=== PATIENT | female | born 1995 | race Caucasian/White ===

== ENCOUNTER 2017-03-05 16:47 | Emergency (ER) | payer BC ==
[~2017-03-05] VITALS: Ht 175.3 cm; Wt 74.7 kg
[2017-03-05 19:12] LABS: RAPID INFLUENZA A Negative (Negative); RAPID INFLUENZA B Negative (Negative)
[2017-03-05 19:39] VITALS: BP 116/76
== END 2017-03-05 19:41 | disposition home or self-care (01) ==
LOC: ED 19:16
DX: H10.023 Other mucopurulent conjunctivitis, bilateral (principal); J02.9 Acute pharyngitis, unspecified
CPT/HCPCS: 87400; 99284